=== PATIENT | male | born 1970 | race American Indian/Alaskan Native ===

== ENCOUNTER 2018-04-06 11:21 | Outpatient (CLI) | payer BC ==
[2018-04-06 11:50] LABS: Blood Urea Nitrogen 13 mg/dL (9-20)
--- NOTE | 2018-04-06 18:38 | Magnetic Resonance Report ---
FINAL REPORT EXAM: MR BRAIN WO/W CON HISTORY: HEADACHES TECHNIQUE: MRI brain with and without contrast PRIORS: None. FINDINGS: There is normal signal throughout the brain parenchyma. No evidence for brain edema pattern or mass effect. Ventricles and sulci are within normal limits. No evidence for acute intra-axial or extra-axial hemorrhage. No areas of abnormal enhancement are identified post-contrast sequences Note is made of a mucous retention cyst within the right maxillary sinus is No evidence for acute restriction on diffusion-weighted study. Brainstem and posterior fossa structures are unremarkable. IMPRESSION: Mucous retention cyst in the right maxillary sinus Otherwise normal study
== END 2018-04-06 11:22 | disposition home or self-care (01) ==
LOC: MRI 11:21
PROVIDERS: ATTEND Internal Medicine
DX: J34.1 Cyst and mucocele of nose and nasal sinus (principal)
CPT/HCPCS: 36415; 70553; 82565; 84520; A9577